=== PATIENT | male | born 1955 | race Caucasian/White ===

== ENCOUNTER 2020-03-26 06:20 | Day surgery (SDC) | payer OTHER ==
[~2020-03-26] VITALS: Ht 185.4 cm; Wt 133.0 kg
[~2020-03-26 06:20] MED LIST: ASPI-496 PO; LIDOCAINE/PF 1%-EPI 1:200K, 30 ML ONE; ROPIvacaine/PF 0.5%, 30 ML ONE; SIMV20TA PO; TELM1TAB3 PO
[2020-03-26] MEDS ORDERED: LACTATED RINGERS 1,000 ML IV SCH (06:52)
[2020-03-26 06:53] VITALS: BP 144/87
[2020-03-26] MEDS ORDERED: CHLORHEXIDINE 15 ML UDC MM ONE (07:00)
[2020-03-26] MEDS ORDERED: FENTANYL PF 100 MCG/2ML ONE (07:28)
[2020-03-26] MEDS ORDERED: MIDAZOLAM 1 MG/ML, 2ML ONE (07:28)
[2020-03-26] MEDS ORDERED: LIDOCAINE GEL 2%, 5ML ONE (07:52)
[2020-03-26] MEDS ORDERED: CEFAZOLIN 1,000 MG ONE (08:28)
[2020-03-26] MEDS ORDERED: PROPOFOL 10 MG/ML, 20ML ONE (08:28)
[2020-03-26] MEDS ORDERED: ONDANSETRON 2MG/ML, 2ML ONE (08:28)
[2020-03-26] MEDS ORDERED: DEXAMETHASONE 4 MG/ML, 1ML ONE (08:28)
[2020-03-26] MEDS ORDERED: HYDROmorphone 1 MG/ML, 1ML INJ IVPush PRN (08:30)
[2020-03-26] MEDS ORDERED: FENTANYL PF 100 MCG/2ML IV PRN (08:30)
[2020-03-26] MEDS ORDERED: LABETALOL 5MG/ML, 20ML IV PRN (08:30)
[2020-03-26] MEDS ORDERED: OXYcodone 5 MG/5 ML ORAL.SOL UDC PO PRN (08:30)
[2020-03-26] MEDS ORDERED: hydrALAzine 20 MG/ML, 1ML IV PRN (08:30)
[2020-03-26] MEDS ORDERED: MEPERIDINE/PF 25MG/0.5ML IVPush PRN (08:30)
[2020-03-26] MEDS ORDERED: ACETAMINOPHEN 325 MG TABLET PO PRN (08:30)
[2020-03-26] MEDS ORDERED: PROMETHAZINE 25 MG/ML, 1ML IVPush PRN (08:30)
[2020-03-26] MEDS ORDERED: ALBUTEROL SULFATE 2.5 MG/3 ML NPPB PRN (08:30)
[2020-03-26] MEDS ORDERED: MIDAZOLAM 1 MG/ML, 2ML IV PRN (08:30)
[2020-03-26] MEDS ORDERED: OXYcodone 5 MG/5 ML ORAL.SOL UDC ONE (09:03)
[2020-03-26] MEDS ORDERED: ACETAMINOPHEN 650 MG/20.3 ML UDC ONE (09:03)
== END 2020-03-26 10:35 | disposition home or self-care (01) ==
LOC: OUT 06:20
PROVIDERS: ATTEND Orthopaedic Surgery
DX: S83.232A Complex tear of medial meniscus, current injury, left knee, initial encounter (principal); S83.282A Other tear of lateral meniscus, current injury, left knee, initial encounter; M22.42 Chondromalacia patellae, left knee; I10 Essential (primary) hypertension; E11.9 Type 2 diabetes mellitus without complications; E78.5 Hyperlipidemia, unspecified; E66.01 Morbid (severe) obesity due to excess calories; Z79.82 Long term (current) use of aspirin; Z79.899 Other long term (current) drug therapy; Z87.891 Personal history of nicotine dependence; Z85.820 Personal history of malignant melanoma of skin; X50.1XXA Overexertion from prolonged static or awkward postures, initial encounter; Y93.89 Activity, other specified; Y92.89 Other specified places as the place of occurrence of the external cause; Y99.8 Other external cause status
CPT/HCPCS: 29880; J0690; J1100; J2250; J2405; J2704; J2795; J3010; J3490; J7120; U0001

== ENCOUNTER 2021-02-23 15:00 | Emergency (ER) | payer OTHER ==
[~2021-02-23] VITALS: Ht 185.4 cm; Wt 135.0 kg
[~2021-02-23 15:00] MED LIST changes: -LIDOCAINE/PF 1%-EPI 1:200K, 30 ML ONE; -ROPIvacaine/PF 0.5%, 30 ML ONE
[2021-02-23 15:29] VITALS: BP 128/89
[2021-02-23] MEDS ORDERED: LEVETIRACETAM 1,000 MG in SODIUM CHLORIDE 0.9% 100 ML IV ONE (16:30)
[2021-02-23] MEDS ORDERED: DEXAMETHASONE 4 MG/ML, 1ML IVPush ONE (16:30)
[2021-02-23] MEDS ORDERED: HYDROcodone/APAP 5/325 TABLET PO ONE (16:30)
[2021-02-23] MEDS ORDERED: DEXAMETHASONE 4 MG/ML, 1ML ONE (16:38)
[2021-02-23] MEDS ORDERED: HYDROcodone/APAP 5/325 TABLET ONE (16:38)
--- NOTE | 2021-02-23 17:17 | NUR ---
REPORT CALLED TO [facility] DELATORRE. NEGRITA RN TOOK REPORT PRIOR TO TRANSFER PATIENT GIVEN DECADRON, IV KEPPRA AND 5MG OF NORCO (BACK PAIN)
== END 2021-02-23 22:56 | disposition home or self-care (01) ==
LOC: ED 16:08
DX: R56.9 Unspecified convulsions (principal); G83.9 Paralytic syndrome, unspecified; R22.0 Localized swelling, mass and lump, head; E11.9 Type 2 diabetes mellitus without complications; I10 Essential (primary) hypertension; Z87.891 Personal history of nicotine dependence
CPT/HCPCS: 96365; 96375; 99284; J1100; J1953